=== PATIENT | female | born 1975 | race Asian ===

== ENCOUNTER 2018-11-20 22:28 | Emergency (ER) | payer OTHER ==
--- NOTE | 2018-11-20 22:41 | ED Physician Documentation ---
PD HPI URI - Stated complaint Stated Complaint: SOA SHAKING DIZZY - Chief complaint Chief Complaint: General - History obtained from History obtained from: Patient PD PAST MEDICAL HISTORY - Present Medications Home Medications: Ambulatory Orders Medication Instructions Recorded Confirmed Lisinopril 0 mg PO 11/20/18 - Allergies Allergies/Adverse Reactions: Allergies Allergy/AdvReac Type Severity Reaction Status Date / Time No Known Drug Allergies Allergy Verified 11/20/18 22:35 Results - Vitals Vitals: Vital Signs - 24 hr 11/20/18 22:31 Temperature 37.5 C Heart Rate 101 H Respiratory 18 Rate Blood Pressure 157/101 H O2 Saturation 100 Oxygen O2 Source Room air
[2018-11-20] MEDS ORDERED: SODIUM CHLORIDE 0.9% 1,000 ML IV ONE (23:13)
[2018-11-20] MEDS ORDERED: ACETAMINOPHEN 500 MG TABLET PO STA (23:13)
[2018-11-20 23:37] LABS: BASOPHILS % (AUTO) 0.3 %; EOSINOPHILS % (AUTO) 0.3 %; HGB - HEMOGLOBIN 13.6 g/dL (12.0-16.0); LYMPHOCYTES # (AUTO) 1.5 10^3/uL (1.5-3.5); LYMPHOCYTES % (AUTO) 21.6 %; MEAN CORPUSCULAR HEMOGLOBIN 27.6 pg (27.0-31.0); MEAN CORPUSCULAR HGB CONC 32.3 g/dL (32.0-36.0); MEAN CORPUSCULAR VOLUME 85.4 fL (81.0-99.0); MEAN PLATELET VOLUME 6.1 fL (7.9-10.8); MONOCYTES # (AUTO) 0.3 10^3/uL (0.0-1.0); NEUTROPHILS # (AUTO) 5.3 10^3/uL (1.5-6.6); NEUTROPHILS % (AUTO) 73.8 %; PLT - PLATELET COUNT 285 10^3/uL (130-450); RED BLOOD COUNT 4.92 10^6/uL (4.20-5.40); RED CELL DISTRIBUTION WIDTH 13.8 % (12.0-15.0); WHITE BLOOD COUNT 7.1 x10^3/uL (4.8-10.8)
[2018-11-20 23:38] LABS: BILIRUBIN,URINE NEGATIVE (NEGATIVE); GLUCOSE, URINE (UA) NEGATIVE (NEGATIVE); KETONES,URINE (UA) NEGATIVE (NEGATIVE); LEUKOCYTE ESTERASE, URINE TRACE (NEGATIVE); NITRITE,URINE NEGATIVE (NEGATIVE); OCCULT BLOOD,URINE NEGATIVE (NEGATIVE); PROTEIN,URINE NEGATIVE (NEGATIVE); UROBILINOGEN,URINE 0.2 (NORMAL) E.U./dL (NORMAL)
[2018-11-20 23:39] LABS: CLARITY,URINE CLEAR (CLEAR)
[2018-11-20 23:40] LABS: HCG UR QUAL NEGATIVE
[2018-11-20 23:44] LABS: BACTERIA,URINE None Seen /HPF (None Seen); RBC,URINE None Seen /HPF (0-5); SQUAMOUS EPITHELIAL CELL,UR MOD Squamous (<= Few)
[2018-11-20 23:48] LABS: ALBUMIN 4.6 g/dL (3.2-5.5); ALBUMIN/GLOBULIN RATIO 1.7 (1.0-2.2); BILIRUBIN,TOTAL 0.6 mg/dL (0.2-1.0); CALCIUM 9.4 mg/dL (8.5-10.3); CREATININE 0.6 mg/dL (0.4-1.0); TOTAL PROTEIN 7.3 g/dL (6.7-8.2)
[2018-11-21] MEDS ORDERED: KETOROLAC 15 MG/ML VIAL IVP STA (00:25)
[2018-11-21] MEDS ORDERED: LORazepam 2 MG/ML VIAL IVP STA (00:25)
--- NOTE | 2018-11-21 00:27 | ED Physician Documentation ---
History of Present Illness - Stated complaint Stated Complaint: SOA SHAKING DIZZY - Chief complaint Chief Complaint: General - Additonal information Additional information: 43-year-old female presents the emergency department with reports of feeling dizzy, lightheaded and generally shaky. The symptoms started 1 hour prior to arrival in the emergency department. The patient felt like she was having difficulty catching her breath. The patient denies chest pain, dyspnea on exertion, wheezing, abdominal pain or dysuria or fever. Symptoms are described as moderate. No triggering factors. No relieving factors. Review of Systems Constitutional: denies: Fever, Chills Eyes: denies: Discharge Ears: denies: Ear pain Nose: denies: Rhinorrhea / runny nose Throat: denies: Sore throat Cardiac: denies: Chest pain / pressure Respiratory: reports: Dyspnea. denies: Cough, Wheezing GI: denies: Abdominal Pain : denies: Dysuria Skin: denies: Rash Musculoskeletal: denies: Neck pain Neurologic: denies: Generalized weakness, Numbness, Difficulty speaking, Near syncope, Syncope PD PAST MEDICAL HISTORY - Past Medical History Past Medical History: Yes Cardiovascular: Hypertension - Past Surgical History Past Surgical History: No - Present Medications Home Medications: Ambulatory Orders Medication Instructions Recorded Confirmed Lisinopril 0 mg PO 11/20/18 - Allergies Allergies/Adverse Reactions: Allergies Allergy/AdvReac Type Severity Reaction Status Date / Time No Known Drug Allergies Allergy Verified 11/20/18 22:35 - Social History Does the pt smoke?: No Smoking Status: Never smoker Does the pt drink ETOH?: No Does the pt have substance abuse?: No - POLST Patient has POLST: No PD ED PE NORMAL - General General: Alert and oriented X 3, No acute distress - HEENT HEENT: Atraumatic, PERRL, EOMI, Ears normal - Neck Neck: Supple, no meningeal sign - Cardiac Cardiac: RRR, Strong equal pulses - Respiratory Respiratory: No respiratory distress - Abdomen Abdomen: Soft, Non tender - Derm Derm: Normal color - Extremities Extremities: No deformity, Normal ROM s pain, No edema - Neuro Neuro: Alert and oriented X 3, 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, No motor deficit, Normal speech - Psych Psych: Normal affect Results - Vitals Vitals: Vital Signs - 24 hr 11/20/18 22:31 Temperature 37.5 C Heart Rate 101 H Respiratory 18 Rate Blood Pressure 157/101 H O2 Saturation 100 Oxygen O2 Source Room air - EKG (time done) No standard instances Rhythm: NSR Intervals: Normal AR, QRS normal QRS: Normal Ischemia: Normal ST segments - Labs Labs: Laboratory Tests 11/20/18 11/20/18 11/20/18 23:20 23:25 23:25 WBC 7.1 RBC 4.92 Hgb 13.6 Hct 42.1 MCV 85.4 MCH 27.6 MCHC 32.3 RDW 13.8 Plt Count 285 MPV 6.1 L Neut # (Auto) 5.3 Lymph # (Auto) 1.5 [place] # (Auto) 0.3 Eos # (Auto) 0.0 Baso # (Auto) 0.0 Absolute Nucleated RBC 0.00 Nucleated RBC % 0.0 Sodium 135 Potassium 3.9 Chloride 95 L Carbon Dioxide 29 Anion Gap 11.0 BUN 12 Creatinine 0.6 Estimated GFR (MDRD) 109 Glucose 136 H Calcium 9.4 Total Bilirubin 0.6 AST 40 ALT 25 Alkaline Phosphatase 72 Troponin I Total Protein 7.3 Albumin 4.6 Globulin 2.7 Albumin/Globulin Ratio 1.7 Lipase 32 Urine Color YELLOW Urine Clarity CLEAR Urine pH 7.0 Ur Specific [place] 1.015 Urine Protein NEGATIVE Urine Glucose (UA) NEGATIVE Urine Ketones NEGATIVE Urine Occult Blood NEGATIVE Urine Nitrite NEGATIVE Urine Bilirubin NEGATIVE Urine Urobilinogen 0.2 (NORMAL) Ur Leukocyte Esterase TRACE H Urine RBC None Seen Urine WBC 4-5 Ur Squamous Epith Cells MOD Squamous H Urine Bacteria None Seen Ur Microscopic Review INDICATED Urine Culture Comments NOT INDICATED Urine HCG, Qual NEGATIVE Influenza A (Rapid) Influenza B (Rapid) 11/20/18 11/20/18 23:25 23:28 WBC RBC Hgb Hct MCV MCH MCHC RDW Plt Count MPV Neut # (Auto) Lymph # (Auto) [place] # (Auto) Eos # (Auto) Baso # (Auto) Absolute Nucleated RBC Nucleated RBC % Sodium Potassium Chloride Carbon Dioxide Anion Gap BUN Creatinine Estimated GFR (MDRD) Glucose Calcium Total Bilirubin AST ALT Alkaline Phosphatase Troponin I < 0.04 Total Protein Albumin Globulin Albumin/Globulin Ratio Lipase Urine Color Urine Clarity Urine pH Ur Specific [place] Urine Protein Urine Glucose (UA) Urine Ketones Urine Occult Blood Urine Nitrite Urine Bilirubin Urine Urobilinogen Ur Leukocyte Esterase Urine RBC Urine WBC Ur Squamous Epith Cells Urine Bacteria Ur Microscopic Review Urine Culture Comments Urine HCG, Qual Influenza A (Rapid) Negative Influenza B (Rapid) Negative PD MEDICAL DECISION MAKING - ED course ED course: On reevaluation the patient is resting comfortably and appears to be in no acute distress. The patient's workup does not reveal any significant abnormality that would require admission to the hospital. The patient's symptoms are somewhat nondescript but the patient appears appropriate at this time for discharge with ongoing outpatient management. The findings and plan were discussed the patient who understands and agrees. I discussed warning signs and recommended returning for any worsening or any concerns Departure - Departure Disposition: 01 Home, Self Care Clinical Impression: Dizziness Condition: Good Instructions: ED Dizziness [facility] Follow-Up: JACOB BUSBY MD [Primary Care Provider] - Within 1 week Comments: Please return to the emergency department for worsening symptoms or any concerns
[2018-11-21 00:54] VITALS: BP 128/86
== END 2018-11-21 00:54 | disposition home or self-care (01) ==
LOC: ED 22:28
DX: R42 Dizziness and giddiness (principal); I10 Essential (primary) hypertension
CPT/HCPCS: 36415; 80053; 81001; 81025; 83690; 84484; 85025; 87275; 87276; 93005; 96361; 96374; 99283; A9270; J2060; 81003; 87086